=== PATIENT | female | born 1960 | race Caucasian/White ===

== ENCOUNTER 2016-12-25 15:06 | Emergency (ER) | payer OTHER ==
[~2016-12-25] VITALS: Ht 160 cm; Wt 82.6 kg
[~2016-12-25 15:06] MED LIST: 'XANAX1 MG PO; ANAPROX DS550 MG PO; ANTIVERT/2525 MG PO; CIPROFLOXACIN500 MG PO; CLARITIN10 MG PO; DAYPRO600 M1 PO; DEPAKOTE125 MG; FLEXERIL10 MG PO; FLONASE ALLERG9.9 ML NAS; IBU800 M1 PO; KEFLEX500 MG PO; LEVOFLOXACIN500 MG PO; MEDROL DOSEPAK4 MG PO; NICODERM21 MG/24 H TD; PAXIL20 MG; PREDNISONE10 MG PO; PREDNISONE20 M1 PO; PRILOSEC20 MG PO; PROVENTIL0.09 MG/A1 INH; PROVENTIL0.09 MG/AC IH; ROBAXIN750 MG PO; ROBITUSSIN AC 110 ML PO; SIMVASTATIN10 MG PO; TEMAZEPAM15 M1 PO; TRAMADOL HCL50 MG PO; TRAZADONE HYDR100 MG PO; VALIUM; VIBRAMYCIN100 MG PO; VICODIN 500 MG-1 TAB PO; XANAX; ZITHROMAX Z PA250 MG PO; ZOFRAN ODT4 MG SL
[2016-12-25 15:08] VITALS: BP 150/100
[2016-12-25] MEDS ORDERED: DOXEPIN25 MG PO (15:12)
[2016-12-25 15:23] LABS: BILIRUBIN NEGATIVE (NEGATIVE); BLOOD 2+ (NEGATIVE); CLARITY CLOUDY (CLEAR); COLOR YELLOW (YELLOW); GLUCOSE NEGATIVE (NEGATIVE); KETONE NEGATIVE (NEGATIVE); LEUKO ESTERASE 3+ (NEGATIVE); NITRITE NEGATIVE (NEGATIVE); PROTEIN NEGATIVE (NEGATIVE); SPECIFIC GRAVITY <= 1.005 (1.005-1.030); UROBILINOGEN 0.2 E.U./dl (0.2-1.0)
[2016-12-25 15:35] LABS: BACTERIA TRACE; URINE REFLEX COMMENT YES (NO); WBC 51-100 wbc/hpf (0-5)
[2016-12-25] MEDS ORDERED: PYRIDIUM100 MG PO (16:03)
[2016-12-25] MEDS ORDERED: BACTRIM DS 8001 TA1 PO (16:03)
== END 2016-12-25 16:08 | disposition home or self-care (01) ==
LOC: ED 15:06
PROVIDERS: Registered Nurse
DX: N39.0 Urinary tract infection, site not specified (principal); R31.9 Hematuria, unspecified; Z88.0 Allergy status to penicillin; Z79.899 Other long term (current) drug therapy

== ENCOUNTER 2017-08-30 14:29 | Emergency (ER) | payer OTHER ==
[~2017-08-30] VITALS: Ht 167.6 cm; Wt 81.6 kg
[~2017-08-30 14:29] MED LIST changes: +BACTRIM DS 8001 TA1 PO; +DOXEPIN25 MG PO; +PYRIDIUM100 MG PO
[2017-08-30 14:49] VITALS: BP 127/86
[2017-08-30 15:07] LABS: BASO % 0.4 % (0.0-1.0); EOS # 0.1 10*3/uL (0.0-0.4); EOS % 2.7 % (1.0-4.0); HEMATOCRIT 46.8 % (37.0-47.0); HEMOGLOBIN 15.5 g/dl (12.0-16.0); LYMPH # 1.9 10*3/uL (1.3-4.4); LYMPH % 36.6 % (27.0-41.0); MEAN CELL VOLUME 97.3 fl (81.0-99.0); MEAN CORPUSCULAR HGB 32.2 pg (27.0-31.0); MEAN CORPUSCULAR HGB CONC 33.1 g/dl (33.0-37.0); MEAN PLATELET VOLUME 10.6 fl (9.6-12.3); MONO # 0.8 10*3/uL (0.1-1.0); MONO % 16.4 % (3.0-9.0); NEUT # 2.2 10*3/uL (2.3-7.9); NEUT % 43.7 % (47.0-73.0); PLATELET COUNT AUTOMATED 165 10*3/uL (130-400); RED BLOOD COUNT 4.81 10*6/uL (4.10-5.10); RED CELL DISTRI WIDTH 13.2 % (0-14.5); WHITE BLOOD COUNT 5.1 10*3/uL (4.8-10.8)
[2017-08-30 15:24] LABS: ALBUMIN 4.1 gm/dl (3.1-4.5); ALKALINE PHOSPHATASE 86 U/L (45-117); BUN 8 mg/dl (7-24); CHLORIDE 102 mmol/L (98-107); CREATININE 0.63 mg/dL (0.55-1.02); POTASSIUM 4.1 mmol/L (3.5-5.1); SGOT/AST 30 IU/L (3-35); SGPT/ALT 31 U/L (12-78); SODIUM 140 mmol/L (136-145); TOTAL PROTEIN 8.1 gm/dL (6.4-8.2)
[2017-08-30] MEDS ORDERED: FLONASE ALLERG9.9 ML NAS (17:45)
[2017-08-30] MEDS ORDERED: PREDNISONE50 MG PO (17:45)
[2017-08-30] MEDS ORDERED: ZITHROMAX250 MG PO (17:45)
== END 2017-08-30 17:52 | disposition home or self-care (01) ==
LOC: ED 14:29
PROVIDERS: Nurse Practitioner Family
DX: J20.9 Acute bronchitis, unspecified (principal); J01.90 Acute sinusitis, unspecified; F17.200 Nicotine dependence, unspecified, uncomplicated; J44.9 Chronic obstructive pulmonary disease, unspecified; Z90.710 Acquired absence of both cervix and uterus; Z79.899 Other long term (current) drug therapy; Z88.0 Allergy status to penicillin

== ENCOUNTER 2018-12-29 12:17 | Emergency (ER) | payer OTHER ==
[~2018-12-29] VITALS: Wt 66.2 kg
[2018-12-29 12:17] VITALS: BP 127/79
[~2018-12-29 12:17] MED LIST changes: +PREDNISONE50 MG PO; +ZITHROMAX250 MG PO
[2018-12-29] MEDS ORDERED: PREDNISONE50 MG PO (13:08)
[2018-12-29] MEDS ORDERED: FLONASE ALLERG9.9 ML NAS (13:08)
[2018-12-29] MEDS ORDERED: ZITHROMAX250 MG PO (13:08)
== END 2018-12-29 13:14 | disposition home or self-care (01) ==
LOC: ED 12:17
DX: J01.90 Acute sinusitis, unspecified (principal); Z88.0 Allergy status to penicillin; Z79.899 Other long term (current) drug therapy

== ENCOUNTER 2019-07-15 22:23 | Emergency (ER) | payer OTHER ==
[~2019-07-15] VITALS: Ht 157.4 cm; Wt 63.5 kg
[2019-07-15 22:26] VITALS: BP 130/80
[2019-07-15] MEDS ORDERED: TRAZODONE50 MG PO (22:27)
[2019-07-15] MEDS ORDERED: Wellbutrin Sr100 MG PO (22:28)
[2019-07-15] MEDS ORDERED: NAPROSYN500 MG PO (23:22)
== END 2019-07-16 00:10 | disposition home or self-care (01) ==
LOC: ED 22:23
DX: K02.9 Dental caries, unspecified (principal); J44.9 Chronic obstructive pulmonary disease, unspecified; F17.200 Nicotine dependence, unspecified, uncomplicated; Z88.0 Allergy status to penicillin; Z79.899 Other long term (current) drug therapy

== ENCOUNTER 2022-03-17 13:45 | Emergency (ER) | payer OTHER ==
[~2022-03-17] VITALS: Wt 69.4 kg
[~2022-03-17 13:45] MED LIST changes: +NAPROSYN500 MG PO; +TRAZODONE50 MG PO; +Wellbutrin Sr100 MG PO
[2022-03-17 15:06] VITALS: BP 121/83
[2022-03-17] MEDS ORDERED: IBUPROFEN600 MG PO (15:39)
[2022-03-17] MEDS ORDERED: CLINDAMYCIN HC300 MG PO (15:39)
== END 2022-03-17 16:14 | disposition home or self-care (01) ==
LOC: ED 13:45
DX: K08.89 Other specified disorders of teeth and supporting structures (principal); Z88.0 Allergy status to penicillin; Z79.899 Other long term (current) drug therapy; Z90.710 Acquired absence of both cervix and uterus

== ENCOUNTER 2023-06-01 12:59 | Emergency (ER) | payer OTHER ==
[~2023-06-01] VITALS: Ht 157.4 cm; Wt 66.7 kg
[~2023-06-01 12:59] MED LIST changes: +CLINDAMYCIN HC300 MG PO; +IBUPROFEN600 MG PO
[2023-06-01 13:10] VITALS: BP 153/91
[2023-06-01] MEDS ORDERED: CLINDAMYCIN HC300 MG PO (13:18)
== END 2023-06-01 13:23 | disposition home or self-care (01) ==
LOC: ED 12:59
DX: K04.7 Periapical abscess without sinus (principal); K08.89 Other specified disorders of teeth and supporting structures; K02.9 Dental caries, unspecified; J44.9 Chronic obstructive pulmonary disease, unspecified; Z88.0 Allergy status to penicillin; Z90.711 Acquired absence of uterus with remaining cervical stump; Z98.890 Other specified postprocedural states; F17.290 Nicotine dependence, other tobacco product, uncomplicated

== ENCOUNTER → 2025-06-16 | Outpatient (CLI) | payer OTHER ==
[2025-06-16 14:25] LABS: BASO # 0.0 10*3/uL (0.0-0.1); BASO % 0.2 % (0.0-1.0); EOS # 0.1 10*3/uL (0.0-0.4); EOS % 2.0 % (1.0-4.0); MEAN CELL VOLUME 97.9 fl (81.0-99.0); MEAN CORPUSCULAR HGB 32.2 pg (27.0-31.0); MEAN PLATELET VOLUME 9.8 fl (9.6-12.3); MONO # 0.4 10*3/uL (0.1-1.0); MONO % 7.9 % (3.0-9.0); NEUT # 2.3 10*3/uL (2.3-7.9); NEUT % 49.9 % (47.0-73.0); NUCLEATED RED BLOOD CELL 0.0 % (0.0-0.0); NUCLEATED RED BLOOD CELL 0.0 10*3/uL (0.0-0.0); PLATELET COUNT AUTOMATED 198 10*3/uL (130-400); RED CELL DISTRI WIDTH 13.0 % (0-14.5)
[2025-06-16 14:54] LABS: BUN 13 mg/dl (9-23); GAMMA GLUTAMYL TRANSFERASE 79 U/L (0-38); LDL CHOLESTEROL 190 mg/dL (9-159); SGPT/ALT 24 U/L (5-49)
[2025-06-16 14:55] LABS: VITAMIN D, 25-HYDROXY 40.1 ng/mL (30-100)
== END | disposition home or self-care (01) ==
LOC: LAB 14:04
PROVIDERS: ATTEND Nurse Practitioner Family
DX: F43.10 Post-traumatic stress disorder, unspecified (principal)